=== PATIENT | female | born 1955 | race Caucasian/White ===

== ENCOUNTER → 2021-10-30 | Outpatient (CLI) | payer SELFPAY ==
[2021-11-06 09:44] LABS: HPV APTIMA, High Risk Negative (Negative)
== END | disposition home or self-care (01) ==
LOC: LABSPEC 14:42
PROVIDERS: Visit Provider Student in an Organized Health Care Education/Training Program
DX: Z12.4 Encounter for screening for malignant neoplasm of cervix (principal)
CPT/HCPCS: 87624; 88175; G0145

== ENCOUNTER 2022-02-18 07:14 | Day surgery (SDC) | payer SELFPAY, OTHER ==
[2022-02-15 10:12] LABS: Hematocrit 39.3 % (37-47); Mean Corp Hgb Conc 33.1 g/dL (32-36); Mean Corpuscular Volume 90.8 fL (81-99); Mean Platelet Vol. 8.8 fl (6.2-12.0); Platelet Count 313 K/mm3 (150-450); RBC Distribution Width CV 13.2 % (11.6-14.6); RBC Distribution Width SD 43.7 fl (35.1-43.9); Red Blood Count 4.33 M/mm3 (4.2-5.4); White Blood Count 4.9 K/mm3 (4.4-11.0)
[2022-02-18] VITALS (7 sets, daily range): BP systolic 139–156; BP diastolic 61–83; PULSE 61–86; RESP 14–18; TEMP 36.2–36.6; O2SAT 96–100; BMI 29.1
--- NOTE | 2022-02-18 | EMB_PTH ---
PATIENT: CYNTHIA SNIDER LOC: [facility] [place] U#:[id number] AGE/SX: 66/F ROOM: RE02/18/[address]: Dr. Sofia Carolina DO : 1955 BED: DIS: 02/18/2022 SPEC #: [id number] RECD: 02/18/22 13:34 STATUS: RAUL REBhavani #: [id number] ERUM: 02/18/22 00:[address]: Sofia Carolina DEPT: SURGICAL PATHOLOGY RECD BY: Scout Ramirez ENTERED: 02/19/22 10:41 SP TYPE: ENDOM BX/C DARIEN DR: Dr. Desmond Carolina MD Tissues: Endometrium, NOS Procedures: Surgery Specimen Level IV HEADER OPERATION: Hysteroscopy, D & C Symphion PRE-OP DIAGNOSIS: Postmenopausal bleeding TISSUE SUBMITTED: Endometrial curettings MICROSCOPIC DIAGNOSIS Endometrial curettings: Scant fragments of benign endometrial tissue with focal cystic atrophic changes. Fragments of myometrium. See comment. SJ:tariq 02/22/2022 COMMENT The specimen predominantly consists of myometrial tissue. Myometrial tissue shows focal area of hyalinization and may represent fragments of submucosal leiomyoma. Clinical correlation and appropriate follow up are necessary. MICROSCOPIC DESCRIPTION Slides are reviewed. GROSS DESCRIPTION Received is one container labeled with the patient's name and not further designated. The specimen consists of multiple irregular fragments of wilson soft tissue that in aggregate measure 3 x 2.5 x 0.3 cm. The specimen is totally submitted in one cassette. / TAD:tariq 02/19/2022 TC:5 CPT: 39161
--- NOTE | 2022-02-18 07:40 | PCM.HP.BLA ---
History and Physical Date of Admission: 02/18/22 HISTORY OF PRESENT ILLNESS: On 02/15/2022, Bessy Mayes, a 66 year old female 6 0 0 0 6, presented for: hysteroscopy, dilation and curettage, polypectomy with symphion for post menopausal bleeding. MEDICAL HISTORY: 1. Diabetes mellitus ALLERGIES: Atorvastatin, Irregular heart rate MEDICATIONS HISTORY: Patient is also takin. Actos 15 mg tablet, 1 PO QD 2. metformin 1,000 mg tablet, 1 PO BID MENSTRUAL HISTORY: LMP Known?- Postmenopausal SOCIAL HISTORY: Alcohol Use - denies drinking Smoking - denies smoking Drug Use - denies REVIEW OF SYSTEMS: GENERAL - Denies fever, or chills SKIN - Denies skin changes EYES - Denies visual changes EARS - Denies difficulty hearing NOSE - Denies nasal congestion or bleeding MOUTH - Denies sore throat or difficulty swallowing NECK - Denies pain or swelling RESPIRATORY - Denies shortness of breath or wheezing CARDIOVASCULAR - Denies palpitations or chest pain GASTROINTESTINAL - Denies nausea, vomiting, diarrhea, constipation GENITOURINARY - Retention, feels as if something is in the way MUSCULOSKELETAL - Denies joint or muscle pain NEUROLOGICAL - Denies localized numbness or weakness PSYCHIATRIC - Denies depression or anxiety ENDOCRINE - Denies heat or cold intolerance, weight loss or gain HEMATO-IMMUNOLOGIC - Denies excessive bleeding with cuts PHYSICAL EXAMINATION BP- 142/82 Sitting, Right arm, regular cuff Weight- 157.0 lbs Height- 60.25 inch BMI:30.40 CONSTITUTIONAL - NAD, well nourished, and well developed SKIN - No rash, lesions, or ulcers HEENT - Normocephalic, PERRLA, EOMI LUNGS - normal respiratory rate and rhythm EXTREMITIES - No edema or calf tenderness NEUROLOGICAL - Cranial nerves II-XII grossly intact PSYCHIATRIC - A and O to time, place, person, mood and affect ASSESSMENT/PLAN BY DIAGNOSIS: 1. Leiomyoma Of Uterus, Unspecified and Postmenopausal Bleeding Pt had Biote placed in July 2021. Bleeding after placement. US showing heterogeneous endometrium. Planned for hysteroscopy, dilation and curettage, polypectomy with symphion
[2022-02-18] MEDS: Lactated Ringers 1,000 ML 125 ML IV (07:50)
[2022-02-18 08:36] LABS: Bedside Glucose 155 mg/dL (74-106)
--- NOTE | 2022-02-18 10:10 | PCM.OPRPT ---
Report of Operation Date of Procedure: 02/18/22 Pre-Operative Diagnosis: Postmenopausal bleeding Post-Operative Diagnosis: Postmenopausal bleeding Surgery/Procedure Performed:: Hysteroscopy, dilation and curettage, myomectomy with Symphion device Description of Surgical Findings:: Normal-appearing external genitalia. Grade 2 anterior prolapse, grade 2 apical prolapse, minimal posterior prolapse. Good uterine descensus. Large posterior fibroid,submucosal. Type of Anesthesia: MAC Specimen's removed: Endometrial curettings Estimated Blood Loss (mL): 10 cc Fluids Replaced: 800cc Description of Procedure: All risks Indications, risk, benefits, alternatives discussed. Risks include but are not limited to: Risk of bleeding to the point of transfusion, infection, injury to surrounding tissue including bowel/bladder/uterine perforation, VTE, ICU admission. Patient aware and consented. Procedure: Patient taken back to the operating room, MAC anesthesia induced. Patient placed in the dorsal lithotomy position prepped and draped in the usual sterile fashion. Weighted speculum placed in the posterior vagina and anterior lip of the cervix grasped with Allis clamp. Cervix sequentially dilated. Hysteroscope placed through the cervical canal and inspection of endometrial cavity completed with findings as above with fibroid noted. Symphion device opened. Device utilized to remove majority of fibroid. Small amount at the base remained at the end of the procedure. Base of fibroid hemostatic. Hysteroscope removed along with device. Allis clamp removed. Cervix hemostatic, weighted speculum removed. At the end of the procedure all needle, lap, sponge counts were correct x2. Fluid deficit: 400cc UOP: not measured Complications None
--- NOTE | 2022-02-18 10:26 | PCM.DC ---
Discharge Instructions Diet Discharge Diet: No restrictions Activity Discharge Activity: Return to Normal Activity and May Shower May resume sexual activity in: 2 weeks Weight Bearing Status: Weight bearing as tolerated Lifting Restrictions: None Dressing / Incision Call your doctor if you observe: Fever of 101 or Higher, Change in Color, Inability to urinate, Using more than 1 pad per hour, Shortness of breath, Dizziness, Swelling in the ankles, Chest pain and Calf discomfort Follow Up Care Please Follow Up With: Sofia Carolina DO When: 2 weeks Test Results: Test results from this visit will be discussed in further detail at your follow-up appointment, if applicable. Discharge Plan Admission Primary Reason for Your Visit: Hysteroscopy, Dilation and curettage Attending Provider: Sofia Carolina Primary Care Provider: Desmond Carolina Discharge Orders/Prescriptions Prescriptions: No Action pioglitazone [Actos] 15 mg Tablet 15 mg PO DAILY RF: 0 metformin 500 mg Tablet 1,000 mg PO BID RF: 0 magnesium 250 mg Tablet 250 mg PO DAILY RF: 0 multivitamin Capsule 1 cap PO DAILY RF: 0 Referrals / Follow Up: Desmond Carolina MD [Primary Care Provider] - Disposition Disposition (needs filled in before D/C Order can be placed): Home, Self Care
== END 2022-02-18 23:59 | disposition home or self-care (01) ==
LOC: SDC 07:16 → AC 07:17
PROVIDERS: PCP Family Medicine; Referring Provider Student in an Organized Health Care Education/Training Program; Visit Provider Student in an Organized Health Care Education/Training Program
PROC: 0UB98ZZ Excision of Uterus, Via Natural or Artificial Opening Endoscopic (ICD-10-PCS; CPT 58558; principal; 2022-02-18 09:15)
DX: D25.9 Leiomyoma of uterus, unspecified (principal); E11.9 Type 2 diabetes mellitus without complications; Z79.84 Long term (current) use of oral hypoglycemic drugs; Z79.899 Other long term (current) drug therapy; N81.2 Incomplete uterovaginal prolapse; Z85.038 Personal history of other malignant neoplasm of large intestine; Z78.0 Asymptomatic menopausal state
CPT/HCPCS: 58558; 00952; 36415; 82962; 85027; 86850; 86900; 86901; 87426; 88305; C9803; J7120; J2405

== ENCOUNTER → 2023-03-22 | Outpatient (CLI) | payer OTHER, SELFPAY ==
--- NOTE | 2023-03-22 14:00 | EMB_PTH ---
PATIENT: CYNTHIA SNIDER LOC: [facility] U#:[id number] AGE/SX: 67/F ROOM: RE03/22/[address]: Dr. Soifa Carolina DO : 1955 BED: DIS: 03/22/2023 SPEC #: [id number] RECD: 03/22/23 15:24 STATUS: RAUL REBhavani #: [id number] ERUM: 03/22/23 14:[address]: Sofia Carolina DEPT: SURGICAL PATHOLOGY RECD BY: Carla Bautista ENTERED: 03/23/23 10:18 SP TYPE: ENDOM BX/C DARIEN DR: Dr. Desmond Carolina MD Tissues: Endometrium, NOS Procedures: Surgery Specimen Level IV HEADER OPERATION: Endometrial biopsy PRE-OP DIAGNOSIS: Postmenopausal biopsy TISSUE SUBMITTED: Endometrial biopsy MICROSCOPIC DIAGNOSIS Endometrial biopsy: Strips of benign endometrial epithelium and superficial fragments of benign endometrial tissue. See comment. TAD:tariq 03/24/2023 COMMENT A few fragments of fibrous tissue with overlying metaplastic endometrial epithelium is also noted may represent biopsy related changes. Clinical correlation and appropriate follow up are necessary. Please make reference to previous specimen ([id number]) endometrial curettings with diagnosis of ?scant fragments of benign endometrial tissue with focal cystic atrophic changes and fragments of myometrium.? Case has been reviewed in consultation with Dr. Teresa who concurs with the above diagnosis. IDC:AM MICROSCOPIC DESCRIPTION Slides are reviewed. GROSS DESCRIPTION Received is one container labeled with the patient's name and not further designated. The specimen consists of multiple fragments of hemorrhagic soft tissue mixed with mucoid tissue that in aggregate measure 2.0 x 1.5 x 0.1 cm. The specimen is totally submitted in one cassette. / TAD:tariq 03/23/2023 TC:3 CPT: 21170
== END | disposition home or self-care (01) ==
LOC: LABSPEC 14:11
PROVIDERS: PCP Family Medicine; Visit Provider Student in an Organized Health Care Education/Training Program
DX: N95.0 Postmenopausal bleeding (principal)
CPT/HCPCS: 88305

== ENCOUNTER 2023-06-30 17:19 | Observation (INO) | payer SELFPAY, OTHER ==
--- NOTE | 2023-06-24 08:43 | EKG12_ITS ---
Test Reason : PRE OP Blood Pressure : / mmHG Vent. Rate : 078 BPM Atrial Rate : 078 BPM P-R Int : 148 ms QRS Dur : 082 ms QT Int : 370 ms P-R-T Axes : 053 -01 019 degrees QTc Int : 421 ms Normal sinus rhythm Low voltage QRS Cannot rule out Anterior infarct , age undetermined Abnormal ECG Confirmed by KRISTA CAAL, CHRISTOPHER ([id number]), features editor NAN COX ([id number]) on 06/27/2023 8:32:33 AM Referred By: Sofia Carolina Confirmed By:JAHAIRA VELASCO MD
[2023-06-24 09:45] LABS: Hematocrit 39.6 % (37-47); Hemoglobin 12.6 g/dL (12.0-15.0); Mean Corp Hgb Conc 31.8 g/dL (32-36); Mean Corpuscular Hgb 29.9 pg (27.0-32.0); Mean Corpuscular Volume 93.8 fL (81-99); Mean Platelet Vol. 8.7 fl (6.2-12.0); Platelet Count 299 K/mm3 (150-450); RBC Distribution Width CV 13.5 % (11.6-14.6); Red Blood Count 4.22 M/mm3 (4.2-5.4)
[2023-06-24 10:26] LABS: Anion Gap 2 (5-15); BUN 10 mg/dL (7-18); BUN/Creat Ratio 10.9 RATIO (10-20); Calcium,Total 9.5 mg/dL (8.5-10.1); Chloride 107 mmol/L (98-107); Creatinine, Serum 0.92 mg/dL (0.55-1.02); EST Glomerular Filtration Rate 64 mL/min (>60); Est Glom Filt Rate - Afr Amer 78 mL/min (>60); Glucose 167 mg/dL (74-106); Magnesium 2.3 mg/dL (1.6-2.6); Sodium Level 140 mmol/L (136-145)
[2023-06-24 10:30] LABS: Hemoglobin A1c 6.9 % (3.8-5.6)
[2023-06-30] VITALS (15 sets, daily range): BP systolic 116–153; BP diastolic 53–80; PULSE 59–89; RESP 16–18; TEMP 36.1–36.6; O2SAT 89–100; BMI 32.1
--- NOTE | 2023-06-30 08:45 | PCM.HP.BLA ---
History and Physical Date of Admission: 06/30/23 HPI: 67-year-old female plan for total laparoscopic hysterectomy, bilateral salpingo-oophorectomy, anterior repair, cystoscopy for postmenopausal bleeding, pelvic pain, and prolapse. Denies headache or vision changes, chest pain or shortness of breath, nausea or vomiting, diarrhea constipations, fevers and chills. 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 Diabetes 2. Hypertension 3. History of colon cancer in 2017 status post resection. Patient did not receive any chemotherapy or radiation. 4. History of AR Medication: 1. Actos 2. Lisinopril Surgical history: Denies Family history: Denies history of blood clots or bleeding disorders, no history of issues with anesthesia Allergies: Statins, Lantus, glucotrol Social history: Denies tobacco, alcohol, drug use Review of system: Negative otherwise stated above Physical exam: Vitals pending General: No acute distress HEENT: Normal cephalic/atraumatic Cardiorespiratory: No increased effort, regular rate and rhythm, lungs clear Abdomen: Soft, nontender Extremities: No edema Neurologic: No focal deficits Musculoskeletal: Moves all extremities equally Assessment/plan: 67-year-old female plan for total laparoscopic hysterectomy, bilateral salpingo-oophorectomy, anterior repair, cystoscopy for postmenopausal bleeding, pelvic pain, and prolapse. All risk, benefits, alternatives discussed with the patient. Risks include but are not limited to: Risk of bleeding to the point of transfusion, infection, injury to surrounding tissue including bowel/bladder potentially requiring prolonged Martinez catheter use/major abdominal vessels, VTE, ICU admission. Due to prior surgical history, patient is at risk of laparotomy. Patient understands. Patient aware and consented.
[2023-06-30] MEDS: Lactated Ringers 1,000 ML 40 ML IV (09:18)
[2023-06-30] MEDS: Magnesium 1 GM over 15 mins IV (09:18)
[2023-06-30] MEDS: dexAMETHasone 4 MG/ML Vial 8 MG IV (09:43)
[2023-06-30] MEDS: Acetaminophen 500 MG Tablet 1000 MG PO ×2 (09:43→18:57)
[2023-06-30] MEDS: Gabapentin 600 MG Tablet PO (09:44)
--- NOTE | 2023-06-30 10:26 | PCM.OPRPT ---
Report of Operation Date of Procedure: 06/30/23 Pre-Operative Diagnosis: Postmenopausal bleeding, pelvic pain, prolapse Post-Operative Diagnosis: Postmenopausal bleeding, pelvic pain, prolapse Surgery/Procedure Performed:: Diagnostic laparoscopy, exploratory laparotomy Description of Surgical Findings:: Normal-appearing external genitalia. Grade 2 anterior prolapse. Moderate uterine descensus. Large amount of intra-abdominal adhesions. Surgeon: Sofia Carolina associate spa director: oRnny Williamson Type of Anesthesia: General Specimen's removed: None Estimated Blood Loss (mL): 20cc Fluids Replaced: 800cc IVFs Description of Procedure: Indication/risk/benefits: 67-year-old female plan for total laparoscopic hysterectomy, bilateral salpingo-oophorectomy, anterior repair, cystoscopy for postmenopausal bleeding, pelvic pain, and prolapse. All risk, benefits, alternatives discussed with the patient. Risks include but are not limited to: Risk of bleeding to the point of transfusion, infection, injury to surrounding tissue including bowel/bladder potentially requiring prolonged Martinez catheter use/major abdominal vessels, VTE, ICU admission. Due to prior surgical history, patient is at risk of laparotomy. Patient understands. Patient aware and consented. Procedure: Patient taken to the operating room and placed under general anesthesia. Patient placed in the dorsal lithotomy position and prepped and draped in the usual sterile fashion. Weighted speculum placed in posterior vagina and Ann retractor used to visualize the cervix. Anterior lip the cervix grasped single-tooth tenaculum. Cervix gradually dilated. Uterus sounded to 10 cm. [id number] sutures placed at the 3 and 9:00 positions on the cervix. 3 cm uterine manipulator placed. Weighted speculum and single-tooth tenaculum removed. Gloves were changed and attention turned to the anterior abdominal wall. Supraumbilical incision made with scalpel and subcutaneous tissue dissected away bluntly from the fascia. Fascia grasped with Hadley clamps. Fascia incised with scalpel. Fascia tagged on either side with suture. Peritoneum grasped and incised with Metzenbaum scissors, entered. Phillips trocar placed. Abdomen insufflated. Laparoscopy revealed large omental and bowel fat adhesions to the anterior abdominal wall. Thin and filmy in appearance on the patient's right side of the pelvis. Due to location of adhesions infraumbilically, unable to inspect left side of pelvis. After thorough inspection, decision was made for laparotomy. Decision for Pfannenstiel incision made as opposed to vertical midline in order to avoid upper abdominal adhesions. Trocar removed. Fascia closed with a running stitch. Skin closed with subcuticular stitch and skin glue. Pfannenstiel skin incision made with scalpel and carried down through subcutaneous tissue. Fascia nicked on either side of the midline and extended with Christian scissors. Fascia grasped at the superior edge with Hadley clamps and underlying rectus muscles were dissected off sharply and bluntly at midline using Christian scissors. Fascia grasped inferiorly with Hadley clamps and underlying rectus muscles were dissected off bluntly and sharply at midline using Christian scissors. Rectus muscles were superiorly. Peritoneum grasped with hemostats and incised with Metzenbaum scissors. Upon entry to peritoneum, it was noted that there were thick omental adhesions in the region lying beneath the rectus muscles. Careful inspection completed. Unable to determine an intraperitoneal entry location without thick omental adhesions. At that time decision to close was made. Chidi placed along the rectus and omentum. Fascia closed with running stitch. Subcutaneous tissue irrigated. Subcutaneous tissue reapproximated with suture. Skin closed with a running subcuticular stitch. Uterine manipulator removed. Cervical sutures tied and cut. Martinez catheter removed. At the end of the procedure all needle, lap, sponge counts were correct. UOP: 1000 cc clear yellow urine Decision not to do anterior repair was made due to concerns for effect on future surgery to be completed by subspecialist. Complications None. Unable to complete planned surgery. Admit VTE Documentation VTE Mechan Device Prophylaxis: SCD's
--- NOTE | 2023-06-30 10:27 | DCINST_ITS ---
Discharge Instructions Diet Discharge Diet: No restrictions Activity Discharge Activity: Return to Normal Activity and May Shower May resume sexual activity in: 2 weeks Weight Bearing Status: Weight bearing as tolerated Lifting Restrictions: No greater than 15 pound Dressing / Incision Call your doctor if your incision/area has: Continuous Slow Oozing, Increased Redness and Foul Smelling Discharge Call your doctor if you observe: Fever of 101 or Higher, Inability to urinate, Inability to have a bowel movement, Using more than 1 pad per hour, Shortness of breath, Swelling in the ankles, Chest pain and Uncontrolled pain Cleanse incision/area with: Soap & Water and Keep Dressing Clean & Dry Follow Up Care Please Follow Up With: Sofia Carolina DO When: 2 weeks post operative appointment Test Results: Test results from this visit will be discussed in further detail at your follow- up appointment, if applicable. Discharge Plan Admission Primary Reason for Your Visit: Diagnostic laparoscopy, exploratory laparotomy Attending Provider: Sofia Carolina Primary Care Provider: HERNAN CAROLINA Discharge Orders/Prescriptions Prescriptions: New oxycodone 5 mg tablet 5 mg PO Q6H PRN (Reason: pain (scale score 7-10)) 4 Days Qty: 10 0RF Continued pioglitazone [Actos] 15 mg Tablet 15 mg PO DAILY metformin 500 mg Tablet 1,000 mg PO BID magnesium 250 mg Tablet 250 mg PO DAILY multivitamin Capsule 1 cap PO DAILY metformin 500 mg tablet extended release 24 hr 500 mg PO BID Patient Comments: TAKE ONE TABLET BY MOUTH TWICE DAILY glipizide 10 mg tablet 10 mg PO DAILY Patient Comments: TAKE ONE TABLET BY MOUTH DAILY pioglitazone 45 mg tablet 45 mg PO DAILY Patient Comments: TAKE ONE TABLET BY MOUTH DAILY losartan 25 mg tablet 25 mg PO DAILY Patient Comments: TAKE ONE TABLET BY MOUTH DAILY ARTERY CARE 1 TAB capsule 1 tab PO DAILY Probacap 10 billion cell capsule 100 mmu cells PO DAILY Disposition Disposition (needs filled in before D/C Order can be placed): Home, Self Care
[2023-06-30] MEDS: Cefazolin 2 GM in 0.9% Normal Saline 100 ML IV (11:28)
[2023-06-30] MEDS: Ondansetron 4 MG/2 ML Vial IV (13:00)
[2023-06-30 14:16] LABS: Bedside Glucose 142 mg/dL (74-106)
[2023-06-30] MEDS: Insulin Lispro 100 UNIT/ML INSULN.PEN SC (14:47)
[2023-06-30] MEDS: oxyCODONE 5 MG Tablet PO (15:30)
[2023-06-30] MEDS: Docusate Sodium 100 MG Capsule PO (21:40)
[2023-07-01] MEDS: Acetaminophen 500 MG Tablet 1000 MG PO ×2 (00:07→06:20)
[2023-07-01 03:47] VITALS: BP 101/51; PULSE 61; RESP 14; TEMP 36.6; O2SAT 95
[2023-07-01 06:14] VITALS: BP 104/48; PULSE 63; RESP 16; TEMP 36.4; O2SAT 95
--- NOTE | 2023-07-01 06:39 | DCINST_ITS ---
Discharge Instructions Diet Discharge Diet: No restrictions Activity May resume sexual activity in: 2 weeks Weight Bearing Status: Weight bearing as tolerated Dressing / Incision Call your doctor if your incision/area has: Continuous Slow Oozing, Increased Redness and Foul Smelling Discharge Call your doctor if you observe: Fever of 101 or Higher, Inability to urinate, Inability to have a bowel movement, Using more than 1 pad per hour, Shortness of breath, Swelling in the ankles, Chest pain and Uncontrolled pain Cleanse incision/area with: Soap & Water and Keep Dressing Clean & Dry Follow Up Care Please Follow Up With: Sofia Carolina DO When: 2 weeks post op Test Results: Test results from this visit will be discussed in further detail at your follow- up appointment, if applicable. Discharge Plan Admission Admit Date/Time: 06/30/23 17:19 Primary Reason for Your Visit: Diagnostic laparoscopy, exploratory laparotomy Attending Provider: Sofia Carolina Primary Care Provider: HERNAN CAROLINA Discharge Orders/Prescriptions Prescriptions: New oxycodone 5 mg tablet 5 mg PO Q6H PRN (Reason: pain (scale score 7-10)) 4 Days Qty: 10 0RF Continued pioglitazone [Actos] 15 mg Tablet 15 mg PO DAILY metformin 500 mg Tablet 1,000 mg PO BID magnesium 250 mg Tablet 250 mg PO DAILY multivitamin Capsule 1 cap PO DAILY metformin 500 mg tablet extended release 24 hr 500 mg PO BID Patient Comments: TAKE ONE TABLET BY MOUTH TWICE DAILY glipizide 10 mg tablet 10 mg PO DAILY Patient Comments: TAKE ONE TABLET BY MOUTH DAILY pioglitazone 45 mg tablet 45 mg PO DAILY Patient Comments: TAKE ONE TABLET BY MOUTH DAILY losartan 25 mg tablet 25 mg PO DAILY Patient Comments: TAKE ONE TABLET BY MOUTH DAILY ARTERY CARE 1 TAB capsule 1 tab PO DAILY Probacap 10 billion cell capsule 100 mmu cells PO DAILY Disposition Discharge Orders: Discharge Patient (Routine); Ordered 07/01/23 Ordered By: Dr. Omi Carolina
--- NOTE | 2023-07-01 06:40 | PCM.PN.OB ---
Subjective Subjective No overnight complaints. Pain well controlled Objective Data Objective Data Vital Signs: Vital Signs Temp Pulse Resp BP Pulse Ox O2 Del Method O2 Flow Rate 97.5 F L 63 16 104/48 L 95 Room Air 2 07/01/23 06:14 07/01/23 06:14 07/01/23 06:14 07/01/23 06:14 07/01/23 06:14 07/01/23 06:14 06/30/23 17:13 Oxygen Flow Rate (L/min) 2 Oxygen Delivery Method Room Air Weight: 170 lb 3.15 oz Body Mass Index (BMI) 32.1 Intake & Output: Intake and Output for Last 24 Hours 06/29/23 06/30/23 07/01/23 23:59 23:59 23:59 Intake Total 1820.33 / 2120.33 401.67 / 401.67 Output Total 2450 / 2450 Balance -629.67 / -329.67 401.67 / 401.67 Lab / Micro Data 06/24/23 09:10 06/24/23 09:10 Labs: Laboratory Results - last 24 hr 06/30/23 09:07: POC Glucose 142 H 06/30/23 09:15: Blood Type Cancelled, Antibody Screen Cancelled 06/30/23 09:45: Blood Type B POSITIVE, Antibody Screen NEGATIVE Physical Exam Const alert, oriented x3, no apparent distress, average body habitus, healthy appearing and well nourished HEENT normocephalic and moist oral mucous membranes Eyes PERRL Neck full ROM Resp normal respiratory effort, no retractions and no use of accessory muscles GI GI Narrative: Soft, nontender, bandage clean dry and intact Extremity normal to inspection and full ROM Neuro moves all extremities and no focal motor deficits Psych mental status grossly normal, affect normal, speech normal and activity/motor behavior normal Assessment & Plan (1) Other acute postprocedural pain: PLAN: Postop day 1 status post diagnostic laparoscopy and exploratory laparotomy. Pain well controlled. Patient educated on operative findings all questions answered. Okay to discharge home today
[2023-07-01 07:03] LABS: Bedside Glucose 183 mg/dL (74-106)
[2023-07-01 07:03] LABS: Bedside Glucose 193 mg/dL (74-106)
[2023-07-01 07:03] LABS: Bedside Glucose 205 mg/dL (74-106)
[2023-07-01 07:14] LABS: Hematocrit 34.2 % (37-47); Hemoglobin 10.8 g/dL (12.0-15.0); Mean Corp Hgb Conc 31.6 g/dL (32-36); Mean Corpuscular Hgb 29.6 pg (27.0-32.0); Mean Corpuscular Volume 93.7 fL (81-99); Mean Platelet Vol. 8.9 fl (6.2-12.0); Platelet Count 235 K/mm3 (150-450); RBC Distribution Width SD 44.4 fl (35.1-43.9); Red Blood Count 3.65 M/mm3 (4.2-5.4); White Blood Count 10.8 K/mm3 (4.4-11.0)
[2023-07-01 07:35] VITALS: BP 113/50; PULSE 65; RESP 16; TEMP 36.6; O2SAT 95
[2023-07-01] MEDS: metFORMIN (XR) 500 MG Tablet PO (07:46)
[2023-07-01] MEDS: glipiZIDE 10 MG Tablet PO (07:46)
[2023-07-01 08:02] VITALS: O2SAT 97
== END 2023-07-01 10:45 | disposition home or self-care (01) ==
LOC: SDC 17:43 → MS3 07-01 06:17
PROVIDERS: Anesthesiology; Admitting Provider Student in an Organized Health Care Education/Training Program; Referring Provider Student in an Organized Health Care Education/Training Program; Visit Provider Student in an Organized Health Care Education/Training Program
PROC: 0UT94ZZ Resection of Uterus, Percutaneous Endoscopic Approach (ICD-10-PCS; CPT 49320; principal; 2023-06-30 10:25)
DX: N81.2 Incomplete uterovaginal prolapse (principal); E11.9 Type 2 diabetes mellitus without complications; N95.0 Postmenopausal bleeding; I10 Essential (primary) hypertension; Z79.84 Long term (current) use of oral hypoglycemic drugs; I25.2 Old myocardial infarction; Z79.899 Other long term (current) drug therapy; K66.0 Peritoneal adhesions (postprocedural) (postinfection)
CPT/HCPCS: 49320; 49000; 00840; 36415; 80048; 82962; 83036; 83735; 85027; 86850; 86900; 86901; 93005; 94668; 96360; 96361; 99221; J7120; G0378; J2405; J3475